=== PATIENT | female | born 1960 | race Caucasian/White ===

== ENCOUNTER 2016-10-21 22:14 | Emergency (ER) | payer OTHER ==
[~2016-10-21] VITALS: Ht 157.5 cm; Wt 113.9 kg
[~2016-10-21 22:14] MED LIST: CRESTOR10 MG PO; FOLIC ACID1 MG PO; METFORMIN HCL1000 MG PO; METHOTREXATE2.5 MG PO; NEXIUM40 MG PO; OXYCODONE-APAP1 EAC6 PO; ZESTORETIC 20-1 EAC1 NG
[2016-10-22] MEDS ORDERED: PREDNISONE20 MG PO (00:48)
[2016-10-22 01:05] VITALS: BP 128/88
== END 2016-10-22 01:11 | disposition home or self-care (01) ==
LOC: EME 22:14
DX: M25.561 Pain in right knee (principal); M79.7 Fibromyalgia; M06.9 Rheumatoid arthritis, unspecified
CPT/HCPCS: 73564; 93971; 99281; 99284

== ENCOUNTER 2017-08-02 17:29 | Emergency (ER) | payer OTHER ==
[~2017-08-02] VITALS: Ht 157.5 cm; Wt 113.5 kg
[~2017-08-02 17:29] MED LIST changes: +PREDNISONE20 MG PO
[2017-08-02 21:32] VITALS: BP 149/82
== END 2017-08-02 21:00 | disposition home or self-care (01) ==
LOC: EME 17:29
DX: S06.0X0A Concussion without loss of consciousness, initial encounter (principal); W22.8XXA Striking against or struck by other objects, initial encounter; I10 Essential (primary) hypertension; E78.5 Hyperlipidemia, unspecified; E11.9 Type 2 diabetes mellitus without complications; Z88.1 Allergy status to other antibiotic agents
CPT/HCPCS: 70450; 99281; 99283

== ENCOUNTER → 2017-10-14 | Outpatient (CLI) | payer OTHER ==
[~2017-10-14] VITALS: Ht 157.5 cm; Wt 109.8 kg
[~2017-10-14] MED LIST changes: +AMOX TR-K CLV1 EAC4 PO; +CRESTOR20 MG PO; +FLAGYL500 MG PO; +JANUVIA100 MG PO; +LEVO-T88 MCG PO; +TRULICITY0.75 MG/0. SC; +VITAMIN D31000 UNIT PO; +ZESTORETIC 10-1 EAC1 PO
== END | disposition home or self-care (01) ==
LOC: AMB 09:05
PROVIDERS: Internal Medicine
DX: Z12.11 Encounter for screening for malignant neoplasm of colon (principal); K57.30 Diverticulosis of large intestine without perforation or abscess without bleeding; K64.8 Other hemorrhoids; K62.1 Rectal polyp; I10 Essential (primary) hypertension; E11.9 Type 2 diabetes mellitus without complications; J45.909 Unspecified asthma, uncomplicated; K21.9 Gastro-esophageal reflux disease without esophagitis; E03.9 Hypothyroidism, unspecified; E66.01 Morbid (severe) obesity due to excess calories; Z68.42 Body mass index [BMI] 45.0-49.9, adult; Z79.84 Long term (current) use of oral hypoglycemic drugs; Z80.0 Family history of malignant neoplasm of digestive organs; Z79.82 Long term (current) use of aspirin; Z87.891 Personal history of nicotine dependence
CPT/HCPCS: 82948; 88305; 93005